=== PATIENT | female | born 1970 | race Caucasian/White ===

== ENCOUNTER 2017-01-09 19:04 | Inpatient (IN) | payer MEDICARE ==
--- NOTE | ~2017-01-09 | HP ---
History And Physical [id number] [place]. [address] NAME: YANICK EMNDEZ : 74 STATUS : ADM Mary PAT#: [id number] AGE: 46 ADM/REG DATE : 01/10/17 MR#: [id number] REPORT SERV DATE: 01/10/17 DICTATED BY: KARTHIK CHAMBERS DATE: 01/10/17 REPORT STATUS : Draft TRANSCRIBED BY: MODL DATE: 01/10/17 DATE OF ADMISSION: 01/10/2017 ADDENDUM 1. #4 was pulmonary hypertension, secondary to #3. 2. Hypoxemia. 3. Anxiety. 4. Chronic pain. Patient seeking Dilaudid which helped more in the past. 5. Patient accusing of diverting the pain medications and taking some of them though not in his presence. denying this and seems somewhat frustrated with the patient's chronic medical conditions and problems. 6. Bipolar affective disorder with depressive state, probably major depressive disorder associated with that. says she is said to be bipolar and has been seen by [facility] in the past. It may be that the suicidal threat is due to loss of control, concerning that someone is diverting her pain medications and limited resources to deal with this. PLAN: Observation. Restart medications. Observe blood pressure. Holding the medications that may lower blood pressure some. Case management for assistance for transfer to psychiatric facility because of suicidal threat. We will get Dr. Londono to help see her in the hospital for psychiatric problems. PHYSICAL EXAMINATION: GENERAL: The patient appears comfortable. She is feeding herself breakfast. Her affect is flat. Voice is monotone with a whining tone to it. DB/JUAN M Karthik Chambers M.D. / [id number] CC: Jesus Miranda M.D. James Zellner, M.D. Dannis Hood Jr., M.D. Denis Kennedy, M.D. Carlos Baleeiro, M.D.
--- NOTE | ~2017-01-09 | CN ---
Consultation Report [facility] [address] [place]. [address] NAME: YANICK MENDEZ : 74 STATUS : ADM IN PAT#: [id number] AGE: 46 ADM/REG DATE : 01/11/17 MR#: [id number] REPORT SERV DATE: 01/16/17 DICTATED BY: DAYNE KHAN DATE: 01/16/17 REPORT STATUS : Draft TRANSCRIBED BY: MODL DATE: 01/16/17 CONSULTATION DATE OF CONSULTATION: 01/16/2017 REASON: Chest pain. HISTORY OF PRESENT ILLNESS: Ms. Mendez is a 46-year-old female with a known coronary artery disease who underwent stenting in approximately 2012 at [facility]. That history is given by the patient. She is seen by my partner, Dr. Valentine in clinic. 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 She is here for suicidal ideations. From the initial history and physical, I cannot see that she actually complained of significant chest pain. However, during the course of her stay here, she has begun complaining of some left-sided chest pain that radiates into her left arm. She states it reminds her of prior pain before she was stented back in 2012. PAST MEDICAL HISTORY: 1. Coronary artery disease with PCI. 2. Chronic pain. 3. History of congestive heart failure. 4. GERD. SOCIAL HISTORY: Her is in the room. FAMILY HISTORY: There is coronary artery disease in the family. HOME MEDICATIONS: Please see the list in the chart as it is extensive. Relevant cardiac medications are aspirin, Bumex, pravastatin, spironolactone, and warfarin. ALLERGIES: THERE ARE MULTIPLE ALLERGIES LISTED IN THE CHART. THESE INCLUDE, NITROGLYCERIN AND LATEX. REVIEW OF SYSTEMS: A 10-system review was asked and is negative except for noted above in the history of present illness and for the following: She has chronic pain, chronic fatigue. No recent cold or flu symptoms. PHYSICAL EXAMINATION: VITAL SIGNS: Temperature 97.9, heart rate 73, blood pressure 99/57. GENERAL: Ms. Mendze is a well-developed female, in no acute distress. She is alert and oriented to person and place. HEENT: Exam was negative. She is not dehydrated. NECK: No JVD is seen in her neck. LUNGS: Lungs have a few rhonchi. No crackles. No wheezing. Consultation Report [id number] [place]. [address] NAME: YANICK MENDEZ : 74 STATUS : ADM IN PAT#: [id number] AGE: 46 ADM/REG DATE : 01/11/17 MR#: [id number] REPORT SERV DATE: 01/16/17 DICTATED BY: DAYNE KHAN DATE: 01/16/17 REPORT STATUS : Draft TRANSCRIBED BY: JUAN M DATE: 01/16/17 HEART: Tones are regular. There is a slight murmur. ABDOMEN: The abdominal exam is negative. There are good bowel sounds. There is a little bit of tenderness to palpation over the left abdomen, it seems minimal. It is worse when she takes a deep breath and I pressed on her. EXTREMITIES: Exam shows minimal pitting edema. NEUROLOGIC: She is intact with normal speech, and normal strength bilaterally in her arms and legs. LABORATORY DATA: White blood cell count 6, hematocrit 33, and platelet count 111. INR 2.9. Sodium 137, potassium 3.9, BUN 13, creatinine 0.6. Cardiac enzymes are negative. Electrocardiogram: This shows sinus rhythm at about 100 beats per minute. She has a normal axis. She has right bundle-branch block. Multiple repolarization changes are noted. This does not appear to be any big change from about 1 month ago. IMPRESSION: 1. Chest pain with some typical elements. 2. History of coronary artery disease with PCI. PLAN: I think the best approach is to pursue a nuclear medicine stress test with Ms. Mendez. It has been a couple of years since she had one. She states that these symptoms remind her of prior symptoms before she had a stent. She and her agree with this plan. If the nuclear medicine stress test is negative, then I think no further cardiac workup is required. Obviously if it is positive, we will proceed with probable cardiac catheterization by Dr. Valentine. KIMBERLY/JUAN M Dayne Khan M.D. / [id number] CC: MD Tiesha Queen M.D.
--- NOTE | ~2017-01-09 | IDS ---
Interim Discharge Summary [facility] [address] [place]. [address] NAME: YANICK MENDEZ : 74 STATUS : ADM IN PAT#: [id number] AGE: 46 ADM/REG DATE : 01/11/17 MR#: [id number] REPORT SERV DATE: 01/21/17 DICTATED BY: DATE: REPORT STATUS : Draft TRANSCRIBED BY: MODL DATE: 01/20/17 ADMISSION DATE: 01/11/2017 DISCHARGE DATE: INTERIM DISCHARGE DIAGNOSES: 1. Chest pain. 2. Anxiety. 3. Pulmonary hypertension. 4. Cor pulmonale. 5. Chronic pain. 6. Suicidal ideation. CONSULTING PHYSICIANS: Include Dr. Nic Londono, and Dr. Luis Valentine, with Cardiology. IMAGING: Includes a multiple portable chest x-rays, the last showing stable severe enlargement of the central pulmonary arteries compatible with pulmonary hypertension. Stable enlargement of the cardiac silhouette with evidence of previous median sternotomy and heart valve replacement. No acute cardiopulmonary abnormality was noted. The patient had a stress test that was intermediate risk which demonstrated anterior ischemia. For full H and P, please refer to Dr. Ruben Marsh's dictation on 01/10/2017. Please also refer to Dr. Nalini Hernandez's interim discharge summary on 01/13/[address] Dayne Galo's consultation dictation on 01/15/2017. HOSPITAL COURSE/PROBLEM LIST: 1. Chest pain. The patient developed chest pain on 01/16/2017. She has a history of coronary artery disease and is a patient of Dr. Valentine. She has a significant history of stenting in 2012 at [place]. 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 After she developed chest pain, troponins were trended which were all negative. Her EKG was unchanged from the previous but her chest pain did not subside so I consulted Dr. Valentine. As mentioned above, the patient underwent a stress test which showed some ischemia so therefore she will have a heart catheterization tomorrow on 01/21/[address] Valentine. If the heart catheterization is negative, we will discharge the patient home for further outpatient workup. However, if it is positive and she needs intervention due to her pulmonary hypertension, she will need to go to [place] for specialty care for that intervention, and we will need to transfer her. Her chest pain has not subsided since 01/16/2017. She has morphine IV ordered. She states that she cannot take nitroglycerin due to her pulmonary hypertension medications. Her chest pain varies in intensity but has not subsided since it started. 2. Anxiety. This was evaluated by Dr. Londono. He placed the patient on Xanax which I have continued. 3. Pulmonary hypertension. This has been stable during her hospital course. I have kept her on her selexipag as well as Revatio. 4. Chronic pain. I will continue the patient's home chronic pain medications MS Contin as well as immediate release morphine. 5. Suicidal ideation. This has resolved since admission. Again, Dr. Dwayne Londono was Interim Discharge Summary [address] [address] NAME: YANICK MENDEZ : 74 STATUS : ADM IN [facility]#: [id number] AGE: 46 ADM/REG DATE : 01/11/17 MR#: [id number] REPORT SERV DATE: 01/21/17 DICTATED BY: DATE: REPORT STATUS : Draft TRANSCRIBED BY: MODL DATE: 01/20/17 consulted who evaluated the patient. It was decided that, she told Dr. Londono that she said she was suicidal when she was not, she was angry with her for not giving her pain medications at home when she asked for them. He has cleared the patient to be discharged once medically stable. CLR/MODL Toby Wong NP / [id number] CC: MD Tiesha Queen M.D.
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
--- NOTE | ~2017-01-09 | IDS ---
Interim Discharge Summary [facility] [address] [place]. [address] NAME: YANICK MENDEZ : 74 STATUS : ADM IN PAT#: [id number] AGE: 46 ADM/REG DATE : 01/11/17 MR#: [id number] REPORT SERV DATE: 01/14/17 DICTATED BY: BRENDA CROWE DATE: 01/14/17 REPORT STATUS : Draft TRANSCRIBED BY: MODL DATE: 01/14/17 ADMISSION DATE: 01/11/2017 DISCHARGE DATE: DIAGNOSES: 1. Suicidal ideation. 2. Anxiety disorder. 3. History of Ebstein anomaly with cor pulmonale/pulmonary hypertension. 4. Chest pain. 5. Acute on chronic bronchitis. 6. Mild hypotension, resolved. 7. Chronic pain management. CONSULTANTS: Dr. Nic Londono, Psychiatry. HOSPITAL COURSE: Please see H and P dictated by Dr. Marsh. This is a 46-year-old female with a past medical history of Ebstein anomaly with a pulmonary hypertension, also history of bronchitis, and on chronic pain management as an outpatient. The patient had suicidal ideation/threat while at home and was brought to the emergency department and admitted to the Hospitalist Service with a Psychiatry consultation. The patient was initially placed on one-to-one suicide precautions. However, her suicide precautions were discontinued by psychiatrist, Dr. Nic Londono, after the patient denied any suicide plans. The patient states that she is on chronic pain management at home and her held some of her pain medicines and she became so frustrated and irritated about the situation and also upset with some problems with some of the children at the house and became very irritated and out of anger made comments concerning a suicide; however, the patient was very tearful and stated that she did not mean it and would not ever plan to hurt herself or kill herself. She was evaluated by Psychiatry, Dr. Nic Londono, who removed the suicide precautions. Her pain management was continued, and also he continued anxiety medication as well. However, the patient's hospital course was prolonged for some acute on chronic bronchitis, for which the patient was recently discharged from the hospital by Dr. Mabry. However, bronchodilators were continued as well as we will restart her doxycycline empirically, although no current signs of infection at this time. Also, the patient has some mild hypotension; however, at her baseline, blood pressure does range around systolic 95. However, she had some mild hypotension lower than that secondary to her diuretics and pain medications. Appropriate changes were made, and now blood pressure is back at her baseline. The plan was for the patient to be discharged with outpatient followup with [facility] counseling, which was recommended by Dr. Nic Londono, Psychiatry for the patient to follow up with him as an outpatient. According to the , the patient already has an appointment with this counseling center. However, today, the patient had a complaint of chest pain, right and left sided, worse with exertion. Therefore, serial troponins will be ordered as well as an EKG. Also, the patient and were educated that the patient is not allowed at this time to give herself any of her own pain medicines and medicines must be given by her for appropriate management and safety. Also, they should continue with home health. Apparently, a home health nurse is already following with the patient at home and recommend to continue to have a nursing teacher at home to monitor medications at Interim Discharge Summary [address] [address] NAME: YANICK MENDEZ : 74 STATUS : ADM IN [facility]#: [id number] AGE: 46 ADM/REG DATE : 01/11/17 MR#: [id number] REPORT SERV DATE: 01/14/17 DICTATED BY: BRENDA CROWE DATE: 01/14/17 REPORT STATUS : Draft TRANSCRIBED BY: JUAN M DATE: 01/14/17 discharge. The patient will be followed by Dr. Delacruz, who will attend to this patient on 01/15/2017 and ascertain when the patient is ready for discharge at that time. [facility]/JUAN M Brenda Crowe M.D. / [id number] CC: Jesus Carr M.D.
--- NOTE | ~2017-01-09 | OP ---
Record Of Operation [facility] [address] [place]. [address] NAME: YANICK MENDEZ : 74 STATUS : DIS IN PAT#: [id number] AGE: 46 ADM/REG DATE : 01/11/17 MR#: [id number] REPORT SERV DATE: 02/12/17 DICTATED BY: AGUSTIN VALENTINE JR. DATE: 01/23/17 REPORT STATUS : Draft TRANSCRIBED BY: MODL DATE: 01/23/17 DATE OF PROCEDURE: 01/21/2017 Cardiac catheterization followed by an interventional summary report. REFERRING PHYSICIAN: Ruben Camacho M.D. INDICATION FOR CARDIAC CATHETERIZATION: Abnormal nuclear stress, unstable angina class 4, chest pain, history of known epicardial coronary artery disease. IV CONSCIOUS SEDATION: 1 mg IV Versed and 50 mcg of intravenous fentanyl. Local anesthesia 30 mL of 1% Xylocaine to the right femoral region. COMPLICATIONS: None. ESTIMATED BLOOD LOSS: Approximately 5 mL. PROCEDURE: After informed consent was obtained, the patient was taken to the cardiac catheterization lab where she was sterilely draped and prepped. Then, a 6-Danish sheath was placed in the right femoral artery following subcutaneous and subfascial 1% Xylocaine administration. A modified Seldinger technique was utilized with flushing of the sheath according to protocol after the sheath was placed. Next, a Curt right catheter was advanced over a wire under fluoroscopy in the BURUNDIAN view for which angiography was performed in the BURUNDIAN and AP cranial views. This catheter was then exchanged for an XB LAD 3.5 with side holes which was advanced over a wire under fluoroscopy to the ostium of the left main coronary artery. Cineangiography was performed in the cranial BURUNDIAN, caudal AP, caudal ESCOBAR, ESCOBAR cranial, and AP cranial views. Prior to the cineangiography of the LAD system, a 6- Danish pigtail catheter had been advanced over wire and gently prolapsed across the aortic valve for which a hemodynamic tracings were obtained in the left ventricle as well as the aorta. A 30 mL ventriculogram was performed in the ESCOBAR view. No aortic stenosis was noted upon pullback across the aortic valve. After imaging of the right coronary artery and left coronary artery system and ventriculogram were performed, the diagnostic case was concluded and the interventional case began. HEMODYNAMICS: Aortic peak systolic pressure 95 mmHg. Aortic minimum diastolic pressure 50 mmHg mean. Aortic pressure 64 mmHg. Left ventricular peak systolic pressure 95 mmHg. Left ventricular end-diastolic pressure 13 mmHg. Aortic peak systolic pressure 95 mmHg. Minimum aortic diastolic pressure of 50 mmHg. Mean aortic pressure 64 mmHg. There was no gradient upon withdrawal of the catheter from left ventricle to the aorta. ANGIOGRAPHY: Right coronary artery 3 mm vessel which bifurcates into a distal large RPLS system, which branches supplying large majority of the inferolateral and posterior wall. Right posterior descending artery normal vessel supplying the diaphragmatic portion of the inferior wall. The proximal mid right coronary artery segments are both normal. Left main coronary artery moderate-sized vessel with 25% ostial stenosis at a prior stent. CINDY grade 3 flow was noted down this long vessel. This vessel bifurcates into an LAD and smaller Record Of Operation [place] [facility] [address] [facility] [place]. [address] NAME: YANICK MENDEZ : 74 STATUS : DIS IN PAT#: [id number] AGE: 46 ADM/REG DATE : 01/11/17 MR#: [id number] REPORT SERV DATE: 02/12/17 DICTATED BY: AGUSTIN VALENTINE JR. DATE: 01/23/17 REPORT STATUS : Draft TRANSCRIBED BY: JUAN M DATE: 01/23/17 circumflex. The circumflex is a 2 to 2.5 mm vessel which gives rise to a very small 1.5 mm obtuse marginal vessel which appears normal and a smaller distal circumflex which also appears normal. Left anterior descending coronary artery moderate-sized vessel, tortuous with a complex type C long stenosis with calcification. Eccentric of the proximal left anterior descending artery involving a portion of the first diagonal vessel. The second diagonal vessel is approximately 2 mm in diameter and approaches the crux of the left anterior descending coronary artery, then proceeds to the crux and to the subdiaphragmatic portion of the heart. CINDY grade 2 flow was noted past this lesion. VENTRICULOGRAM: Normal left ventricular systolic function with ejection fraction of approximately 55% with no regional wall motion abnormality and mild left ventricular hypertrophy. FRACTIONAL FLOW RESERVE: Fractional flow reserve was performed after initiation of weight- based protocol heparin according to weight. ACT approached 264 for which a flow wire was then advanced carefully across the ostial left main lesion after normalizing initial IFR measured 0.96. FFR with adenosine measured 0.88. The flow wire was then advanced across the proximal LAD lesion. IFR measured 0.94. FFR with adenosine then measured 0.76 for which the case became interventional. The patient tolerated the IFR procedure well. The fractional flow reserve wire was advanced via the XP LAD 3.5 with side holes. IMPRESSION: 1. A single vessel epicardial coronary artery disease of significance with abnormal FFR as above, but patent nonsignificant disease of the ostial LAD. 2. Normal left ventricular systolic function with no mitral insufficiency. Normal LVEDP and no wall motion abnormality. PLANS AND RECOMMENDATIONS: Percutaneous coronary intervention of the proximal LAD. Now the interventional report. There is a type C 75% stenosis of the proximal LAD which partially involves the first diagonal coronary artery. This is a complex lesion eccentric and calcified. IFR is noted to be 0.76. PROCEDURE: Following engagement of the XP LAD 3.5 to the ostium of the left main coronary artery. Following cineangiography of the left main system and following FFR and IFR. The flow wire remained across the lesion and an Emerge Monorail 3.0 x 12 mm balloon catheter was then advanced across the lesion and inflated a total of four inflations for 25 seconds each up to 8 atmospheres maximum with 50% residual stenosis. A cutting balloon attempted to cross the lesions before initiation of the Emerge Monorail but was unsuccessful. Following balloon angioplasty, a PROMUS Premier 3.5 x 28 mm stent was advanced and placed across the proximal LAD lesion and deployed at 11 atmospheres for 20 seconds and then post dilated at 11 atmospheres for 20 seconds. This was then withdrawn and a [place] Nonabox Emerge passed across the proximal portion of the stent to post dilate a more dilated segment. This was a 3.5 x 12 mm balloon which was inflated to 14 atmospheres for a total of 15 seconds and then 12 atmospheres for a total of 20 seconds. It was then apparent that there was a small lip at the more proximal end of the 28 mm stent which would be unsuitable for conclusion of the procedure as part of the lesion would be uncovered. Therefore, a PROMUS Premier 3.5 x 8 mm stent was deployed at 12 atmospheres for 20 seconds and post dilated to 14 atmospheres for Record Of Operation [facility] [address] [place]. [address] NAME: VANESSAYANICKN : 74 STATUS : DIS IN [facility]#: [id number] AGE: 46 ADM/REG DATE : 01/11/17 MR#: [id number] REPORT SERV DATE: 02/12/17 DICTATED BY: AGUSTIN VALENTINE JR. DATE: 01/23/17 REPORT STATUS : Draft TRANSCRIBED BY: JUAN M DATE: 01/23/17 15 seconds with 0% residual stenosis. The patient tolerated the procedure well with CINDY grade 3 flow following the procedure. IMPRESSION: Successful PTC drug-eluting stent of the proximal LAD with CINDY grade 3 flow. PLANS AND RECOMMENDATIONS: 1. Continue low-dose aspirin. 2. Resume warfarin and then ensuing 36 hours load and continue clopidogrel 600 mg and then 75 mg daily for one month of triple antiplatelet therapy and then ensuing dual antiplatelet therapy with warfarin and Plavix only. 3. Cardiac risk factor reduction. 4. Further recommendations to follow. /JUAN M Agustin Valentine Jr., M.D. / [id number] CC: Dilma Coker M.D.
--- NOTE | ~2017-01-09 | DS ---
Discharge Summary [place] [address] [place]. [address] NAME: YANICK MENDEZ : 74 STATUS : ADM IN [facility]#: [id number] AGE: 46 ADM/REG DATE : 01/11/17 MR#: [id number] REPORT SERV DATE: 01/27/17 DICTATED BY: TOBY GOMEZ DATE: 01/27/17 REPORT STATUS : Draft TRANSCRIBED BY: MODL DATE: 01/27/17 ADMISSION DATE: 01/11/2017 DISCHARGE DATE: DISCHARGE DIAGNOSIS: 1. Chest pain. 2. Coronary artery disease in the setting of a history of CABG, and history of an Ebstein repair, status post heart catheterization that was performed on 01/21/2017, where two drug-eluting stents were placed. 3. Pulmonary hypertension, cor pulmonale on chronic home O2 of 3 L nasal cannula. 4. Chronic Coumadin therapy with history of pulmonary embolus. Most recent INR 1.9. 5. Anxiety. 6. Chronic pain syndrome. 7. Suicidal ideation. DISCHARGE MEDICATIONS: Aspirin 81 mg daily, Zebeta 10 mg daily, Bumex 0.5 mg p.o. daily, Plavix 75 mg daily, Colace 200 mg at bedtime, magnesium oxide 400 mg daily, MS Contin 30 mg sustained release twice a day, morphine immediate release 15 mg twice a day p.r.n. for breakthrough pain, multivitamin tablet daily, Prilosec 40 mg daily, MiraLAX one packet twice a day, Pravachol 20 mg at bedtime, Seroquel 200 mg at bedtime, spironolactone 50 mg twice a day, Tadalafil 40 mg daily, Carafate 1 g twice a day, Effexor XR 150 mg daily, warfarin 5 mg daily, and Symbicort 160/4.5 one puff inhaled twice a day, Diamox 125 mg daily, potassium chloride 40 mEq daily, Atrovent inhalers two puffs three times a day p.r.n. for shortness of breath, Uptravi 1200 mg twice a day, Opsumit 10 mg daily, and prescription written for Ativan 0.5 mg at hour of sleep p.r.n. for insomnia #15. HISTORY OF PRESENT ILLNESS: This is a 46-year-old, white female, who originally presented with suicidal threat and increasing pain in the setting of chronic pain syndrome. Please see initial H and P of Dr. Ruben Marsh. The patient was admitted to the Hospitalist Service for further evaluation and treatment. CONSULTANTS DURING THIS ADMISSION: 1. Cardiology, Dr. Khan. 2. Dr. Valentine. 3. Psychiatry, Dr. Dwayne Londono. Please also see the interim discharge summaries of Dr. Nalini Hernandez and the interim summary of Toby Wong nurse practitioner, as this discharge summary will cover the dates of 01/22/2017 to 01/27/2017. HOSPITAL COURSE: I began seeing the patient on 01/22/2017. She was status post heart catheterization that had been performed on 01/21/2017, where 2 drug-eluting stents were placed, and she was recovering well from this in the cardiac short-stay unit. Her heparin drip had been started and Coumadin therapy was resumed given her history of pulmonary embolus. She continued to do well. She had completed a ten-day course of doxycycline and this was discontinued. Her INR was followed closely each day, with resumption of her Discharge Summary [address] [address] NAME: YANICK MENDEZ : 74 STATUS : ADM IN [facility]#: [id number] AGE: 46 ADM/REG DATE : 01/11/17 MR#: [id number] REPORT SERV DATE: 01/27/17 DICTATED BY: TOBY GOMEZ DATE: 01/27/17 REPORT STATUS : Draft TRANSCRIBED BY: MODRamiro DATE: 01/27/17 Coumadin, and it began to climb finally on the morning of 01/25/2017 up to 1.5, then to 1.7, and today on 01/27/2017 of 1.9. She will continue on her Coumadin as described in the home medications above and have instructed her to get a recheck INR done in mid week Saturday or Saturday through her [facility]. She will follow up with Dr. Valentine of Cardiology in four weeks and the patient is in agreement with this plan going forward and so she will be discharged home with the above medicines and followup plan. Questions were answered at bedside. Heparin drip has been discontinued. Please note, greater than 30 minutes was spent on this discharge for medication teaching, followup planning, and further disposition. [facility]/MODL Toby Gomez NP / [id number] CC: MD Tiesha Cunningham II, M.D.
--- NOTE | ~2017-01-09 | CN ---
Consultation Report [facility] [address] [place]. [address] NAME: YANICK MENDEZ : 74 STATUS : ADM Mary PAT#: [id number] AGE: 46 ADM/REG DATE : 01/10/17 MR#: [id number] REPORT SERV DATE: 01/10/17 DICTATED BY: NIC RHODES DATE: 01/10/17 REPORT STATUS : Draft TRANSCRIBED BY: JUAN M DATE: 01/10/17 PSYCHIATRIC CONSULTATION DATE OF CONSULTATION: 01/10/2017 I reviewed the patient's current and old medical records. I discussed her status with the ER physician. I discussed her history with her , who was at the bedside. HISTORY OF PRESENT ILLNESS: She was admitted with chest pain. I was asked to address suicidal ideation. PAST PSYCHIATRIC HISTORY: She has a history for over 10 years of easily provoked anger and anxiety. Throughout this time, she has had considerable mood instability. She has had bouts of severe insomnia. She has not had any euphoric avery, but does appear to have experienced dysphoric manic episodes. She has had severely depressive spells. Over recent years, she has made suicidal threat, but no attempts. However, over the past few days, she has again made a suicide threat and she had a plan for shooting herself. SOCIAL HISTORY: She appears to have a very supportive , who is currently at the bedside. Her son is also at the bedside. She has three children, ages from there made teens to mid 20s. FAMILY HISTORY: A brother suffers from bouts of severe insomnia and mood issues. Her father had significant substance abuse and mood issues. MENTAL STATUS: She appeared to be somewhat drowsy at this time. Her speech was slow and slurred. Her mood was dysphoric. Her affect was quite labile with tearful episodes. She expressed ambivalence concerning a suicide. Her thinking was logical. She had no delusions. She had no hallucinations. She was oriented to time, place, and person. DIAGNOSIS: Bipolar disorder, not otherwise specified. RECOMMENDATIONS: We should continue suicide precautions. We should continue her home Seroquel and Effexor. I will follow during this admission. I feel her heavy opioid regimen is a contributor to her mood instability. [facility]/JUAN M Nic Rhodes M.D. / [id number] Consultation Report [place] [address] [address] NAME: YANICK MENDEZ : 74 STATUS : ADM Mary PAT#: [id number] AGE: 46 ADM/REG DATE : 01/10/17 MR#: [id number] REPORT SERV DATE: 01/10/17 DICTATED BY: NIC RHODES DATE: 01/10/17 REPORT STATUS : Draft TRANSCRIBED BY: JUAN M DATE: 01/10/17 CC: Ruben Marsh M.D.
[~2017-01-09 19:04] MED LIST: ACET500CAP PO; ACETAZOLAMID125 MG PO; ADCIRCA20 MG PO; ADVAIR250 INH; ALTA2.5 PO; AMB10 PO; APRES10B PO; ASAB PO; ASAEC PO; ATV.5 PO; ATV1 PO; BACDS PO; BENTYL20 PO; BUM1 PO; BUM2 PO; BYSTOLIC10 MG PO; BYSTOLIC2.5 MG PO; BYSTOLIC5 MG PO; C25 PO; C5; C5 PO; CANASA1SUP PR; CARD30 PO; CARD60 PO; CARDCD240 PO; CEFT5 PO; CENTRUM TAB1 TAB PO; COLCH6 PO; COUMADIN7.5 MG PO; D.O.S.100 MG PO; DEMA20 PO; DEPAKOT250 PO; DIAM250B PO; DIL2TAB PO; DIL4TAB PO; DIPHENCR TOP; DOLOPHINE10 MG PO; DSS PO; DULERA 200 MCG/13 GM INH; DURA100 TOP; DURA50 TOP; DURA75 TOP; EFFEX75 PO; EFFEXOR XR150 MG PO; EFFEXXR75 PO; GLUCPH PO; HALF81 PO; HYDROCORT12 TOP; JANTOVEN5 MG PO; KCL20UDL PO; KCL40UDL PO; KLONO1 PO; KLOR-CON M2020 MEQ PO; KLOR-CON20 MEQ PO; L20 PO; L80 PO; LACT30UDL PO; LAN125 PO; LEVAQUIN750 MG PO; LEVOTHYROXIN50 MCG PO; LIDOCAINE GEL TOP; LIPITOR20 PO; MAGOX4 PO; MEDROLPAK4 PO; METHATAB10 PO; MIRALAX POWDER1 PKT PO; MIRALAXPKT OR; MIRALAXPKT PO; MONODOX100 MG PO; MSCONT15 PO; MSIMMR15 PO; MUCINEX600 MG PO; MULTIPLE VIT PO; MULTIVIT/MIN PO; MULTIVITAMI1 PO; MYCELEX TROCHE10 MG PO; NAC PO; NEUR100 PO; NEXIUM40 PO; NORCO1 TA1 PO; NORCO1 TAB PO; NOVOLOG SC; NOVOPEN SC; NYS500UDL PO; NYSTATPOW TOP; NYSTOP100000 MG TOP; OPSUMIT10 PO; P5 PO; PERCOCET1 TA4 PO; PLAVIX PO; PR25 PO; PRAV10 PO; PRAVAC PO; PRILOSEC40 MG PO; PROAIR HFA INH; PROTONIX PO; PROTONIX20 MG PO; PROVENTSOL INH; PROVHFA INH; RAN500 PO; RANEXA1000 MG PO; REMERON30 MG PO; ROBITUSS23 PO; SENTAB PO; SEROQUEL1C PO; SEROQUEL200 MG PO; SPIRO25 PO; SPIRO50 PO; STERAPDS12; STERAPRED5 MG; STEROID CREAM TOP; STOOL SOFTEN100 MG PO; STOOL SOFTENER; STOOL SOFTENER PO; SUCR PO; SYMBICORT 160/41 INH INH; SYN.05 PO; TESS PO; TESSALON200 MG PO; THERGRANM PO; TOPXL25 PO; TRACLEER PO; TRAZ50 PO; TYVASO0.6 MG/ML; TYVASO0.6 MG/ML INH; UPTRAVI PO; V2 PO; VALIUM10 MG PO; VENTOLIN HFA INH; XANAX2 MG PO; XOPENEX HFA INH; Z5 PO; ZAROX2.5B PO; ZBETA10 PO; ZOCOR5 MG PO; ZOFRAN4 PO; [UNRECOGNIZED DRUG - OTHER] OT; [UNRECOGNIZED DRUG - OTHER] PO
[2017-01-09 20:22] LABS: BASOPHILS 0.4 %; BASOPHILS ABSOLUTE 0.04 10/3/uL (0.0-0.16); EOSINOPHILS 0.8 %; EOSINOPHILS ABSOLUTE 0.09 10/3/uL (0.0-0.53); HEMOGLOBIN 14.5 g/dL (12.0-16.0); IMMATURE GRANULOCYTES 0.2 %; IMMATURE GRANULOCYTES ABSOLUTE 0.02 10/3/uL (0.0-0.11); LYMPHOCYTES 22.9 %; LYMPHOCYTES ABSOLUTE 2.59 10/3/uL (0.67-4.30); MEAN CORPUS HGB CONC 34.8 g/dL (32.0-36.0); MEAN CORPUSCULAR HEMOGLOB 28.9 pg (26.0-34.0); MEAN CORPUSCULAR VOLUME 83.1 fL (80-100); MEAN PLATELET VOLUME 11.9 fL (9.2-13.0); MONOCYTES 6.5 %; MONOCYTES ABSOLUTE 0.74 10/3/uL (0.21-1.20); NEUTROPHILS 69.2 %; NEUTROPHILS ABSOLUTE 7.85 10/3/uL (2.02-8.40); RBC DISTRIBUTION WIDTH 14.6 % (12.0-16.0); RED CELL COUNT 5.02 10/6/uL (4.0-5.6); WHITE BLOOD CELLS 11.3 10/3/uL (4.5-10.5)
[2017-01-09 20:28] LABS: HEMATOCRIT 41.7 % (36.0-48.0); MANUAL DIFF NO %; PLATELET COUNT 213 10/3/uL (150-400)
[2017-01-09 20:30] LABS: INTERNATIONAL NORMAL RATI 1.5 UNITS (-); PARTIAL THROMBO TIME 32.3 SEC (22.5-37.2)
[2017-01-09 20:38] LABS: CALCIUM, SERUM 9.6 MG/DL (8.5-10.4); CHEST PAIN PROFILE TAT 0 Hrs 22 Mins; CHLORIDE, SERUM 110 MMOL/L (96-112); CO2 (CARBON DIOXIDE) 26 MMOL/L (24-34); CREATININE 0.86 MG/DL (0.55-1.02); GFR AFRICAN AMERICAN 95 ML/MIN (>=60); GFR NON AFRICAN AMERICAN 82 ML/MIN (>=60); POTASSIUM, SERUM 4.3 MMOL/L (3.5-5.3); SODIUM, SERUM 143 MMOL/L (135-148); TROPONIN I <0.02 NG/ML (<0.05)
[2017-01-09 20:39] LABS: BUN (BLOOD UREA NITROGEN) 11 MG/DL (6-23); GLUCOSE, SERUM 106 MG/DL (60-99)
[2017-01-09 21:46] LABS: ASCORBIC ACID (UR NOT ORDER) NEG (NEG); BILIRUBIN, URINE NEGATIVE (NEG); ER URINALYSIS TAT 0 Hrs 10 Mins; KETONE, URINE NEGATIVE (NEG); LEUKOCYTE ESTERASE(NOT OR NEG (NEG); NITRITE (URINE) NEG (NEG); WBC (NOT ORDERED) (RFLEX) 1 (0-5)
[2017-01-09 22:17] LABS: AMPHETAMINES (NOT ORD) NEG (NEG); BARBITURATES (NOT ORDERED NEG (NEG); BENZODIAZEPINES (NOT ORD) NEG (NEG); CANNABINOIDS (THC) NEG (NEG); COCAINE (NOT ORDERED) NEG (NEG); OPIATES POS (NEG); PHENCYCLIDINE(PCP) NEG (NEG); TRICYCLICS NEG (NEG)
[2017-01-09 22:29] LABS: ACETAMINOPHEN LEVEL (TYLENOL) < 2.0 MCG/ML (10.0-20.0); ALCOHOL < 10 MG/DL (0); SALICYLATE 3.4 MG/DL (-)
[2017-01-09] MEDS ORDERED: BUM1 PO (22:43)
[2017-01-09] MEDS ORDERED: SYMBICORT 160/41 INH INH (22:43)
[2017-01-09] MEDS ORDERED: DIAM250B PO (22:43)
[2017-01-09] MEDS ORDERED: ASAB PO (22:43)
[2017-01-09] MEDS ORDERED: ZBETA10 PO (22:43)
[2017-01-09] MEDS ORDERED: DSS PO (22:43)
[2017-01-09] MEDS ORDERED: SPIRO50 PO (22:44)
[2017-01-09] MEDS ORDERED: MIRALAX POWDER1 PKT PO (22:44)
[2017-01-09] MEDS ORDERED: SEROQUEL200 MG PO (22:44)
[2017-01-09] MEDS ORDERED: SUCR PO (22:44)
[2017-01-09] MEDS ORDERED: PRAVAC PO (22:44)
[2017-01-09] MEDS ORDERED: KLOR-CON M2020 MEQ PO (22:44)
[2017-01-09] MEDS ORDERED: ADCIRCA20 MG PO (22:45)
[2017-01-09] MEDS ORDERED: IPRA17AE INH (22:46)
[2017-01-09] MEDS ORDERED: EFFEXOR XR150 MG PO (22:46)
[2017-01-09] MEDS ORDERED: C5 PO (22:47)
[2017-01-09] MEDS ORDERED: OPSUMIT10 PO (22:47)
[2017-01-09] MEDS ORDERED: MAGOX4 PO (22:47)
[2017-01-09] MEDS ORDERED: MSCONTIN PO (22:47)
[2017-01-09] MEDS ORDERED: PRILOSEC40 MG PO (22:48)
[2017-01-09] MEDS ORDERED: MSIMMR15 PO (22:48)
[2017-01-09] MEDS ORDERED: MULTIVIT/MIN PO (22:48)
[2017-01-09] MEDS ORDERED: UPTRAVI PO (22:49)
[2017-01-10 06:34] LABS: LACTATE 0.6 MMOL/L (0.3-2.4)
[2017-01-10 06:38] LABS: ASCORBIC ACID (UR NOT ORDER) NEG (NEG); BILIRUBIN, URINE NEGATIVE (NEG); ER URINALYSIS TAT 0 Hrs 00 Mins; KETONE, URINE NEGATIVE (NEG); LEUKOCYTE ESTERASE(NOT OR NEG (NEG); NITRITE (URINE) NEG (NEG); WBC (NOT ORDERED) (RFLEX) 1 (0-5)
[2017-01-10 07:27] LABS: TROPONIN I 0.02 NG/ML (<0.05)
[2017-01-10 07:31] LABS: PROCALCITONIN <0.05 ng/mL (<0.5)
[2017-01-11 05:15] LABS: INTERNATIONAL NORMAL RATI 1.9 UNITS (-)
[2017-01-11 05:17] LABS: PROTIME (NOT ORD) 21.4 SEC (12.0-14.5)
[2017-01-12 06:40] LABS: INTERNATIONAL NORMAL RATI 2.1 UNITS (-); PROTIME (NOT ORD) 23.6 SEC (12.0-14.5)
[2017-01-12 06:47] LABS: BUN (BLOOD UREA NITROGEN) 9 MG/DL (6-23); CHLORIDE, SERUM 104 MMOL/L (96-112); CO2 (CARBON DIOXIDE) 30 MMOL/L (24-34); CREATININE 0.66 MG/DL (0.55-1.02); GFR AFRICAN AMERICAN 125 ML/MIN (>=60); GFR NON AFRICAN AMERICAN 107 ML/MIN (>=60); GLUCOSE, SERUM 125 MG/DL (60-99); POTASSIUM, SERUM 3.8 MMOL/L (3.5-5.3); SODIUM, SERUM 141 MMOL/L (135-148)
[2017-01-12 06:52] LABS: CALCIUM, SERUM 8.3 MG/DL (8.5-10.4)
[2017-01-13 09:54] LABS: INTERNATIONAL NORMAL RATI 2.9 UNITS (-)
[2017-01-13 09:58] LABS: PROTIME (NOT ORD) 30.4 SEC (12.0-14.5)
[2017-01-13 18:28] LABS: CPK 38 U/L (0-200); TROPONIN I <0.02 NG/ML (<0.05)
[2017-01-13 18:31] LABS: CK-MB 0.6 NG/ML
[2017-01-14 05:14] LABS: PROTIME (NOT ORD) 30.9 SEC (12.0-14.5)
[2017-01-14 11:11] LABS: CPK (IF ELEVATED MB BANDS) 26 U/L (0-200); TROPONIN I <0.02 NG/ML (<0.05)
[2017-01-14 16:09] LABS: CPK (IF ELEVATED MB BANDS) 25 U/L (0-200); TROPONIN I <0.02 NG/ML (<0.05)
[2017-01-14 22:22] LABS: CPK (IF ELEVATED MB BANDS) 24 U/L (0-200); TROPONIN I <0.02 NG/ML (<0.05)
[2017-01-15 04:57] LABS: INTERNATIONAL NORMAL RATI 3.1 UNITS (-); PROTIME (NOT ORD) 31.4 SEC (12.0-14.5)
[2017-01-16 09:21] LABS: BASOPHILS 0 %; EOSINOPHILS 0.7 %; EOSINOPHILS ABSOLUTE 0.04 10/3/uL (0.0-0.53); IMMATURE GRANULOCYTES 0.5 %; IMMATURE GRANULOCYTES ABSOLUTE 0.03 10/3/uL (0.0-0.11); LYMPHOCYTES 29.4 %; LYMPHOCYTES ABSOLUTE 1.67 10/3/uL (0.67-4.30); MEAN CORPUSCULAR HEMOGLOB 27.6 pg (26.0-34.0); MEAN PLATELET VOLUME 11.9 fL (9.2-13.0); MONOCYTES 7.2 %; MONOCYTES ABSOLUTE 0.41 10/3/uL (0.21-1.20); NEUTROPHILS 62.2 %; NEUTROPHILS ABSOLUTE 3.53 10/3/uL (2.02-8.40); RBC DISTRIBUTION WIDTH 15.8 % (12.0-16.0)
[2017-01-16 09:22] LABS: HEMATOCRIT 33.3 % (36.0-48.0); HEMOGLOBIN 10.4 g/dL (12.0-16.0); MEAN CORPUS HGB CONC 31.2 g/dL (32.0-36.0); MEAN CORPUSCULAR VOLUME 88.3 fL (80-100); PLATELET COUNT 111 10/3/uL (150-400); RED CELL COUNT 3.77 10/6/uL (4.0-5.6); WHITE BLOOD CELLS 5.7 10/3/uL (4.5-10.5)
[2017-01-16 09:23] LABS: MANUAL DIFF NO %
[2017-01-16 09:27] LABS: INTERNATIONAL NORMAL RATI 2.9 UNITS (-); PROTIME (NOT ORD) 29.9 SEC (12.0-14.5)
[2017-01-16 09:34] LABS: BUN (BLOOD UREA NITROGEN) 13 MG/DL (6-23); CALCIUM, SERUM 8.6 MG/DL (8.5-10.4); CHLORIDE, SERUM 101 MMOL/L (96-112); CO2 (CARBON DIOXIDE) 26 MMOL/L (24-34); CREATININE 0.61 MG/DL (0.55-1.02); GFR AFRICAN AMERICAN 128 ML/MIN (>=60); GFR NON AFRICAN AMERICAN 110 ML/MIN (>=60); GLUCOSE, SERUM 201 MG/DL (60-99); POTASSIUM, SERUM 3.9 MMOL/L (3.5-5.3); SODIUM, SERUM 137 MMOL/L (135-148)
[2017-01-17 13:58] LABS: PROTIME (NOT ORD) 22.9 SEC (12.0-14.5)
[2017-01-18 07:25] LABS: INTERNATIONAL NORMAL RATI 2.1 UNITS (-); PROTIME (NOT ORD) 23.3 SEC (12.0-14.5)
[2017-01-19 05:12] LABS: BASOPHILS 0.2 %; BASOPHILS ABSOLUTE 0.01 10/3/uL (0.0-0.16); EOSINOPHILS 4.9 %; EOSINOPHILS ABSOLUTE 0.29 10/3/uL (0.0-0.53); HEMATOCRIT 34.8 % (36.0-48.0); HEMOGLOBIN 11.1 g/dL (12.0-16.0); IMMATURE GRANULOCYTES 0.5 %; IMMATURE GRANULOCYTES ABSOLUTE 0.03 10/3/uL (0.0-0.11); LYMPHOCYTES 25.6 %; LYMPHOCYTES ABSOLUTE 1.51 10/3/uL (0.67-4.30); MANUAL DIFF NO %; MEAN CORPUS HGB CONC 31.9 g/dL (32.0-36.0); MEAN CORPUSCULAR HEMOGLOB 28.6 pg (26.0-34.0); MEAN CORPUSCULAR VOLUME 89.7 fL (80-100); MEAN PLATELET VOLUME 11.2 fL (9.2-13.0); MONOCYTES 6.1 %; MONOCYTES ABSOLUTE 0.36 10/3/uL (0.21-1.20); NEUTROPHILS 62.7 %; PLATELET COUNT 115 10/3/uL (150-400); RBC DISTRIBUTION WIDTH 15.7 % (12.0-16.0); RED CELL COUNT 3.88 10/6/uL (4.0-5.6); WHITE BLOOD CELLS 5.9 10/3/uL (4.5-10.5)
[2017-01-19 05:14] LABS: BUN (BLOOD UREA NITROGEN) 13 MG/DL (6-23); CALCIUM, SERUM 8.4 MG/DL (8.5-10.4); CHLORIDE, SERUM 102 MMOL/L (96-112); CREATININE 0.89 MG/DL (0.55-1.02); GFR AFRICAN AMERICAN 91 ML/MIN (>=60); GFR NON AFRICAN AMERICAN 79 ML/MIN (>=60); POTASSIUM, SERUM 4.4 MMOL/L (3.5-5.3); SODIUM, SERUM 140 MMOL/L (135-148)
[2017-01-19 05:15] LABS: CO2 (CARBON DIOXIDE) 33 MMOL/L (24-34)
[2017-01-19 05:16] LABS: GLUCOSE, SERUM 116 MG/DL (60-99)
[2017-01-19 05:17] LABS: INTERNATIONAL NORMAL RATI 1.9 UNITS (-); PROTIME (NOT ORD) 21.9 SEC (12.0-14.5)
[2017-01-20 05:42] LABS: BASOPHILS 0.4 %; BASOPHILS ABSOLUTE 0.02 10/3/uL (0.0-0.16); EOSINOPHILS 5.2 %; EOSINOPHILS ABSOLUTE 0.29 10/3/uL (0.0-0.53); IMMATURE GRANULOCYTES 0.2 %; IMMATURE GRANULOCYTES ABSOLUTE 0.01 10/3/uL (0.0-0.11); LYMPHOCYTES 31.6 %; LYMPHOCYTES ABSOLUTE 1.75 10/3/uL (0.67-4.30); MEAN CORPUS HGB CONC 31.4 g/dL (32.0-36.0); MEAN CORPUSCULAR HEMOGLOB 27.8 pg (26.0-34.0); MEAN CORPUSCULAR VOLUME 88.6 fL (80-100); MEAN PLATELET VOLUME 10.7 fL (9.2-13.0); MONOCYTES 3.8 %; MONOCYTES ABSOLUTE 0.21 10/3/uL (0.21-1.20); NEUTROPHILS 58.8 %; NEUTROPHILS ABSOLUTE 3.26 10/3/uL (2.02-8.40); PLATELET COUNT 113 10/3/uL (150-400); RBC DISTRIBUTION WIDTH 15.6 % (12.0-16.0); RED CELL COUNT 3.95 10/6/uL (4.0-5.6); WHITE BLOOD CELLS 5.5 10/3/uL (4.5-10.5)
[2017-01-20 05:43] LABS: MANUAL DIFF NO %
[2017-01-20 05:52] LABS: INTERNATIONAL NORMAL RATI 1.5 UNITS (-); PROTIME (NOT ORD) 17.5 SEC (12.0-14.5)
[2017-01-20 05:56] LABS: BUN (BLOOD UREA NITROGEN) 14 MG/DL (6-23); CALCIUM, SERUM 8.4 MG/DL (8.5-10.4); CHLORIDE, SERUM 100 MMOL/L (96-112); CO2 (CARBON DIOXIDE) 33 MMOL/L (24-34); CREATININE 0.78 MG/DL (0.55-1.02); GFR AFRICAN AMERICAN 107 ML/MIN (>=60); GFR NON AFRICAN AMERICAN 92 ML/MIN (>=60); GLUCOSE, SERUM 134 MG/DL (60-99); POTASSIUM, SERUM 4.2 MMOL/L (3.5-5.3); SODIUM, SERUM 139 MMOL/L (135-148)
[2017-01-21 05:36] LABS: BASOPHILS 0 %; EOSINOPHILS 3.9 %; EOSINOPHILS ABSOLUTE 0.21 10/3/uL (0.0-0.53); HEMATOCRIT 33.9 % (36.0-48.0); HEMOGLOBIN 10.8 g/dL (12.0-16.0); IMMATURE GRANULOCYTES 0.2 %; IMMATURE GRANULOCYTES ABSOLUTE 0.01 10/3/uL (0.0-0.11); LYMPHOCYTES 23.4 %; LYMPHOCYTES ABSOLUTE 1.26 10/3/uL (0.67-4.30); MEAN CORPUS HGB CONC 31.9 g/dL (32.0-36.0); MEAN CORPUSCULAR HEMOGLOB 28.1 pg (26.0-34.0); MEAN CORPUSCULAR VOLUME 88.3 fL (80-100); MEAN PLATELET VOLUME 10.9 fL (9.2-13.0); MONOCYTES 6.3 %; MONOCYTES ABSOLUTE 0.34 10/3/uL (0.21-1.20); NEUTROPHILS 66.2 %; NEUTROPHILS ABSOLUTE 3.57 10/3/uL (2.02-8.40); PLATELET COUNT 107 10/3/uL (150-400); RBC DISTRIBUTION WIDTH 15.8 % (12.0-16.0); RED CELL COUNT 3.84 10/6/uL (4.0-5.6); WHITE BLOOD CELLS 5.4 10/3/uL (4.5-10.5)
[2017-01-21 05:37] LABS: MANUAL DIFF NO %
[2017-01-21 05:48] LABS: BUN (BLOOD UREA NITROGEN) 16 MG/DL (6-23); CALCIUM, SERUM 8.4 MG/DL (8.5-10.4); CHLORIDE, SERUM 101 MMOL/L (96-112); CHOLESTEROL 132 MG/DL (< 200); CO2 (CARBON DIOXIDE) 33 MMOL/L (24-34); CPK 19 U/L (0-200); CREATININE 0.94 MG/DL (0.55-1.02); GFR AFRICAN AMERICAN 86 ML/MIN (>=60); GFR NON AFRICAN AMERICAN 74 ML/MIN (>=60); GLUCOSE, SERUM 139 MG/DL (60-99); POTASSIUM, SERUM 4.4 MMOL/L (3.5-5.3); SODIUM, SERUM 140 MMOL/L (135-148); TRIGLYCERIDE 119 MG/DL (< 150); TROPONIN I <0.02 NG/ML (<0.05)
[2017-01-21 05:50] LABS: CHOL/HDL RATIO(NOT ORDER) 2.3 (0-5); CK-MB 0.5 NG/ML; HDL CHOLESTEROL 58 MG/DL (> 49); LDL CHOLESTEROL 51 MG/DL (< 130); NON-HDL CHOLESTEROL 74 MG/DL (< 160)
[2017-01-21 06:00] LABS: INTERNATIONAL NORMAL RATI 1.3 UNITS (-); PROTIME (NOT ORD) 15.7 SEC (12.0-14.5)
[2017-01-22 05:00] LABS: BASOPHILS 0.3 %; BASOPHILS ABSOLUTE 0.01 10/3/uL (0.0-0.16); EOSINOPHILS ABSOLUTE 0.19 10/3/uL (0.0-0.53); HEMOGLOBIN 10.7 g/dL (12.0-16.0); IMMATURE GRANULOCYTES 0.3 %; IMMATURE GRANULOCYTES ABSOLUTE 0.01 10/3/uL (0.0-0.11); LYMPHOCYTES 22.8 %; LYMPHOCYTES ABSOLUTE 0.86 10/3/uL (0.67-4.30); MANUAL DIFF NO %; MEAN CORPUS HGB CONC 31.5 g/dL (32.0-36.0); MEAN CORPUSCULAR HEMOGLOB 28.6 pg (26.0-34.0); MEAN CORPUSCULAR VOLUME 90.9 fL (80-100); MEAN PLATELET VOLUME 10.3 fL (9.2-13.0); NEUTROPHILS 63.6 %; PLATELET COUNT 90 10/3/uL (150-400); RBC DISTRIBUTION WIDTH 15.6 % (12.0-16.0); RED CELL COUNT 3.74 10/6/uL (4.0-5.6); WHITE BLOOD CELLS 3.8 10/3/uL (4.5-10.5)
[2017-01-22 05:03] LABS: INTERNATIONAL NORMAL RATI 1.2 UNITS (-); PROTIME (NOT ORD) 15.4 SEC (12.0-14.5)
[2017-01-22 05:13] LABS: CALCIUM, SERUM 8.6 MG/DL (8.5-10.4); CHLORIDE, SERUM 102 MMOL/L (96-112); CO2 (CARBON DIOXIDE) 31 MMOL/L (24-34); CREATININE 0.77 MG/DL (0.55-1.02); GFR AFRICAN AMERICAN 109 ML/MIN (>=60); GFR NON AFRICAN AMERICAN 94 ML/MIN (>=60); GLUCOSE, SERUM 152 MG/DL (60-99); POTASSIUM, SERUM 4.1 MMOL/L (3.5-5.3); SODIUM, SERUM 141 MMOL/L (135-148)
[2017-01-22 05:15] LABS: BUN (BLOOD UREA NITROGEN) 9 MG/DL (6-23)
[2017-01-23 03:43] LABS: BASOPHILS 0 %; EOSINOPHILS 4.1 %; EOSINOPHILS ABSOLUTE 0.16 10/3/uL (0.0-0.53); HEMATOCRIT 34.2 % (36.0-48.0); HEMOGLOBIN 10.8 g/dL (12.0-16.0); IMMATURE GRANULOCYTES 0.3 %; IMMATURE GRANULOCYTES ABSOLUTE 0.01 10/3/uL (0.0-0.11); LYMPHOCYTES 25.4 %; LYMPHOCYTES ABSOLUTE 0.99 10/3/uL (0.67-4.30); MEAN CORPUS HGB CONC 31.6 g/dL (32.0-36.0); MEAN CORPUSCULAR HEMOGLOB 28.5 pg (26.0-34.0); MEAN CORPUSCULAR VOLUME 90.2 fL (80-100); MEAN PLATELET VOLUME 10.6 fL (9.2-13.0); MONOCYTES ABSOLUTE 0.31 10/3/uL (0.21-1.20); NEUTROPHILS 62.2 %; NEUTROPHILS ABSOLUTE 2.42 10/3/uL (2.02-8.40); PLATELET COUNT 87 10/3/uL (150-400); RBC DISTRIBUTION WIDTH 15.4 % (12.0-16.0); RED CELL COUNT 3.79 10/6/uL (4.0-5.6); WHITE BLOOD CELLS 3.9 10/3/uL (4.5-10.5)
[2017-01-23 03:46] LABS: MANUAL DIFF NO %
[2017-01-23 03:49] LABS: INTERNATIONAL NORMAL RATI 1.2 UNITS (-); PROTIME (NOT ORD) 14.9 SEC (12.0-14.5)
[2017-01-23 03:54] LABS: BUN (BLOOD UREA NITROGEN) 7 MG/DL (6-23); CALCIUM, SERUM 8.5 MG/DL (8.5-10.4); CHLORIDE, SERUM 109 MMOL/L (96-112); CO2 (CARBON DIOXIDE) 30 MMOL/L (24-34); CREATININE 0.61 MG/DL (0.55-1.02); GFR AFRICAN AMERICAN 128 ML/MIN (>=60); GFR NON AFRICAN AMERICAN 110 ML/MIN (>=60); GLUCOSE, SERUM 129 MG/DL (60-99); SODIUM, SERUM 145 MMOL/L (135-148)
[2017-01-24 06:01] LABS: INTERNATIONAL NORMAL RATI 1.2 UNITS (-); PROTIME (NOT ORD) 15.5 SEC (12.0-14.5)
[2017-01-24 06:04] LABS: PARTIAL THROMBO TIME 128.7 SEC (22.5-37.2)
[2017-01-25 06:47] LABS: BASOPHILS 0.2 %; BASOPHILS ABSOLUTE 0.01 10/3/uL (0.0-0.16); EOSINOPHILS 2.5 %; EOSINOPHILS ABSOLUTE 0.11 10/3/uL (0.0-0.53); HEMATOCRIT 34.3 % (36.0-48.0); IMMATURE GRANULOCYTES 0.5 %; IMMATURE GRANULOCYTES ABSOLUTE 0.02 10/3/uL (0.0-0.11); LYMPHOCYTES 21.8 %; LYMPHOCYTES ABSOLUTE 0.96 10/3/uL (0.67-4.30); MEAN CORPUS HGB CONC 32.1 g/dL (32.0-36.0); MEAN CORPUSCULAR HEMOGLOB 28.9 pg (26.0-34.0); MEAN CORPUSCULAR VOLUME 90.3 fL (80-100); MEAN PLATELET VOLUME 10.9 fL (9.2-13.0); MONOCYTES 8.8 %; MONOCYTES ABSOLUTE 0.39 10/3/uL (0.21-1.20); NEUTROPHILS 66.2 %; NEUTROPHILS ABSOLUTE 2.92 10/3/uL (2.02-8.40); PLATELET COUNT 92 10/3/uL (150-400); RBC DISTRIBUTION WIDTH 15.5 % (12.0-16.0); WHITE BLOOD CELLS 4.4 10/3/uL (4.5-10.5)
[2017-01-25 06:49] LABS: MANUAL DIFF NO %
[2017-01-25 07:00] LABS: BUN (BLOOD UREA NITROGEN) 4 MG/DL (6-23); CHLORIDE, SERUM 103 MMOL/L (96-112); CO2 (CARBON DIOXIDE) 29 MMOL/L (24-34); CREATININE 0.69 MG/DL (0.55-1.02); GFR AFRICAN AMERICAN 123 ML/MIN (>=60); GFR NON AFRICAN AMERICAN 106 ML/MIN (>=60); GLUCOSE, SERUM 122 MG/DL (60-99); POTASSIUM, SERUM 4.1 MMOL/L (3.5-5.3); SODIUM, SERUM 139 MMOL/L (135-148)
[2017-01-25 07:07] LABS: INTERNATIONAL NORMAL RATI 1.5 UNITS (-); PROTIME (NOT ORD) 17.8 SEC (12.0-14.5)
[2017-01-26 08:53] LABS: INTERNATIONAL NORMAL RATI 1.7 UNITS (-); PROTIME (NOT ORD) 19.8 SEC (12.0-14.5)
[2017-01-26 08:54] LABS: PARTIAL THROMBO TIME 76.8 SEC (22.5-37.2)
[2017-01-27 07:22] LABS: INTERNATIONAL NORMAL RATI 1.9 UNITS (-); PROTIME (NOT ORD) 21.2 SEC (12.0-14.5)
[2017-01-27 07:23] LABS: PARTIAL THROMBO TIME 96.4 SEC (22.5-37.2)
[2017-01-27] MEDS ORDERED: ATV1 PO (09:29)
[2017-01-27] MEDS ORDERED: PLAVIX PO (09:29)
[2017-05-19] MEDS ORDERED: MSIMMR15 PO (18:06)
[2017-05-19] MEDS ORDERED: ATV1 PO (18:06)
[2017-05-19] MEDS ORDERED: MSCONTIN PO (18:06)
[2017-05-19] MEDS ORDERED: PR25 PO (18:07)
[2017-05-19] MEDS ORDERED: KLOR-CON M2020 MEQ PO (18:07)
[2017-05-19] MEDS ORDERED: C5 PO (18:08)
[2017-05-19] MEDS ORDERED: COUMADIN7.5 MG PO (18:08)
[2017-05-19] MEDS ORDERED: SUCR PO (18:09)
[2017-05-19] MEDS ORDERED: ZOFRAN4 PO (18:09)
[2017-05-19] MEDS ORDERED: SEROQUEL200 MG PO (18:09)
[2017-05-19] MEDS ORDERED: DSS PO (18:09)
[2017-05-19] MEDS ORDERED: PRILOSEC40 MG PO (18:09)
[2017-05-19] MEDS ORDERED: ZBETA10 PO (18:10)
[2017-05-19] MEDS ORDERED: PRAVAC PO (18:10)
[2017-05-19] MEDS ORDERED: PLAVIX PO (18:11)
[2017-05-19] MEDS ORDERED: MAGOX4 PO (18:11)
[2017-05-19] MEDS ORDERED: MULTIVIT/MIN PO (18:11)
[2017-05-19] MEDS ORDERED: HALF81 PO (18:11)
[2017-05-19] MEDS ORDERED: EFFEXOR XR150 MG PO (18:11)
[2017-05-19] MEDS ORDERED: ACETAZOLAMIDE 125 MG PO (18:11)
[2017-05-19] MEDS ORDERED: UPTRAVI PO (18:12)
[2017-05-19] MEDS ORDERED: BUM5 PO (18:12)
[2017-05-19] MEDS ORDERED: SPIRO50 PO (18:13)
[2017-05-19] MEDS ORDERED: PROVHFA INH (18:13)
[2017-05-24] MEDS ORDERED: MIRALAX POWDER1 PKT PO (13:03)
[2017-05-24] MEDS ORDERED: MOVANTIK25 MG PO (13:03)
[2017-05-24] MEDS ORDERED: ALTA2.5 PO (13:05)
== END 2017-01-27 11:03 | disposition home health service (06) | DRG 247 ==
LOC: ER 19:04 → ER/OF 01-10 10:33 → 7NO 01-10 11:02 → SSU1 01-21 09:27 → 5NO 01-22 15:15
PROVIDERS: Emergency Medicine; Hospitalist; Internal Medicine; Internal Medicine Cardiovascular Disease; Nurse Practitioner Acute Care
PROC: 4A033BC Measurement of Arterial Pressure, Coronary, Percutaneous Approach (ICD-10-PCS; principal; 2017-01-21)
PROC: B2111ZZ Fluoroscopy of Multiple Coronary Arteries using Low Osmolar Contrast (ICD-10-PCS; principal; 2017-01-21)
PROC: B2151ZZ Fluoroscopy of Left Heart using Low Osmolar Contrast (ICD-10-PCS; principal; 2017-01-21)
PROC: 027034Z Dilation of Coronary Artery, One Artery with Drug-eluting Intraluminal Device, Percutaneous Approach (ICD-10-PCS; principal; 2017-01-21)
PROC: 4A023N7 Measurement of Cardiac Sampling and Pressure, Left Heart, Percutaneous Approach (ICD-10-PCS; principal; 2017-01-21)
DX: I25.110 Atherosclerotic heart disease of native coronary artery with unstable angina pectoris (principal); R45.851 Suicidal ideations; I27.2 Other secondary pulmonary hypertension; J20.9 Acute bronchitis, unspecified; I27.81 Cor pulmonale (chronic); F41.9 Anxiety disorder, unspecified; F31.9 Bipolar disorder, unspecified; G89.4 Chronic pain syndrome; Z79.891 Long term (current) use of opiate analgesic; Z95.5 Presence of coronary angioplasty implant and graft; Z91.040 Latex allergy status; Z88.8 Allergy status to other drugs, medicaments and biological substances; Z79.01 Long term (current) use of anticoagulants; Z87.891 Personal history of nicotine dependence; Z86.711 Personal history of pulmonary embolism
CPT/HCPCS: 71010; 78452; 80048; 80061; 80305; 80307; 81001; 82550; 82553; 82962; 83036; 83605; 83735; 84145; 84484; 84703; 85025; 85347; 85610; 85730; 93005; 93017; 93458; 93571; 93572; 94640; 96372; 96374; 97161-GP; 97165-GO; 99152; 99153; 99285; A9270-GY; A9502; C1725; C1769; C1874; C1887; C1894; C9600; G8978-CH-GP; G8979-CH-GP; G8980-CH-GP; G8987-CH-GO; G8988-CH-GO; G8989-CH-GO; J0153; J2250; J2405; J2930; J3010; J3410; Q9967

== ENCOUNTER 2017-03-19 16:25 | Emergency (ER) | payer MEDICARE ==
[~2017-03-19 16:25] MED LIST changes: +IPRA17AE INH; +MSCONTIN PO
[2017-03-19 16:51] LABS: BASOPHILS 0.4 %; BASOPHILS ABSOLUTE 0.04 10/3/uL (0.0-0.16); EOSINOPHILS 1.6 %; EOSINOPHILS ABSOLUTE 0.15 10/3/uL (0.0-0.53); IMMATURE GRANULOCYTES 0.2 %; IMMATURE GRANULOCYTES ABSOLUTE 0.02 10/3/uL (0.0-0.11); LYMPHOCYTES 27.9 %; LYMPHOCYTES ABSOLUTE 2.66 10/3/uL (0.67-4.30); MEAN CORPUSCULAR HEMOGLOB 28.4 pg (26.0-34.0); MEAN PLATELET VOLUME 11.6 fL (9.2-13.0); MONOCYTES 4.3 %; MONOCYTES ABSOLUTE 0.41 10/3/uL (0.21-1.20); NEUTROPHILS 65.6 %; NEUTROPHILS ABSOLUTE 6.27 10/3/uL (2.02-8.40); RBC DISTRIBUTION WIDTH 13.5 % (12.0-16.0)
[2017-03-19 16:52] LABS: ER CBC TAT 0 Hrs 11 Mins; HEMATOCRIT 46.6 % (36.0-48.0); HEMOGLOBIN 16.3 g/dL (12.0-16.0); MANUAL DIFF NO %; MEAN CORPUSCULAR VOLUME 81.3 fL (80-100); PLATELET COUNT 235 10/3/uL (150-400); RED CELL COUNT 5.73 10/6/uL (4.0-5.6); WHITE BLOOD CELLS 9.6 10/3/uL (4.5-10.5)
[2017-03-19 17:00] LABS: INTERNATIONAL NORMAL RATI 1.4 UNITS (-); PARTIAL THROMBO TIME 31.4 SEC (22.5-37.2)
[2017-03-19 17:02] LABS: PROTIME (NOT ORD) 17.1 SEC (12.0-14.5)
[2017-03-19 17:13] LABS: CALCIUM, SERUM 9.9 MG/DL (8.5-10.4); CHLORIDE, SERUM 111 MMOL/L (96-112); CO2 (CARBON DIOXIDE) 26 MMOL/L (24-34); CREATININE 0.95 MG/DL (0.55-1.02); GFR AFRICAN AMERICAN 84 ML/MIN (>=60); GFR NON AFRICAN AMERICAN 73 ML/MIN (>=60); GLUCOSE, SERUM 123 MG/DL (60-99); SODIUM, SERUM 140 MMOL/L (135-148); TROPONIN I <0.02 NG/ML (<0.05)
[2017-03-19 17:14] LABS: BUN (BLOOD UREA NITROGEN) 9 MG/DL (6-23); CHEST PAIN PROFILE TAT 0 Hrs 32 Mins
[2017-05-19] MEDS ORDERED: MSIMMR15 PO (18:06)
[2017-05-19] MEDS ORDERED: ATV1 PO (18:06)
[2017-05-19] MEDS ORDERED: MSCONTIN PO (18:06)
[2017-05-19] MEDS ORDERED: PR25 PO (18:07)
[2017-05-19] MEDS ORDERED: KLOR-CON M2020 MEQ PO (18:07)
[2017-05-19] MEDS ORDERED: C5 PO (18:08)
[2017-05-19] MEDS ORDERED: COUMADIN7.5 MG PO (18:08)
[2017-05-19] MEDS ORDERED: SEROQUEL200 MG PO (18:09)
[2017-05-19] MEDS ORDERED: PRILOSEC40 MG PO (18:09)
[2017-05-19] MEDS ORDERED: DSS PO (18:09)
[2017-05-19] MEDS ORDERED: ZOFRAN4 PO (18:09)
[2017-05-19] MEDS ORDERED: SUCR PO (18:09)
[2017-05-19] MEDS ORDERED: PRAVAC PO (18:10)
[2017-05-19] MEDS ORDERED: ZBETA10 PO (18:10)
[2017-05-19] MEDS ORDERED: EFFEXOR XR150 MG PO (18:11)
[2017-05-19] MEDS ORDERED: HALF81 PO (18:11)
[2017-05-19] MEDS ORDERED: PLAVIX PO (18:11)
[2017-05-19] MEDS ORDERED: MAGOX4 PO (18:11)
[2017-05-19] MEDS ORDERED: MULTIVIT/MIN PO (18:11)
[2017-05-19] MEDS ORDERED: ACETAZOLAMIDE 125 MG PO (18:11)
[2017-05-19] MEDS ORDERED: UPTRAVI PO (18:12)
[2017-05-19] MEDS ORDERED: BUM5 PO (18:12)
[2017-05-19] MEDS ORDERED: PROVHFA INH (18:13)
[2017-05-19] MEDS ORDERED: SPIRO50 PO (18:13)
[2017-05-24] MEDS ORDERED: MIRALAX POWDER1 PKT PO (13:03)
[2017-05-24] MEDS ORDERED: MOVANTIK25 MG PO (13:03)
[2017-05-24] MEDS ORDERED: ALTA2.5 PO (13:05)
== END 2017-03-20 00:40 | disposition home or self-care (01) ==
LOC: ER 16:25
PROVIDERS: Emergency Medicine
DX: R07.89 Other chest pain (principal); I25.10 Atherosclerotic heart disease of native coronary artery without angina pectoris; I11.0 Hypertensive heart disease with heart failure; I50.9 Heart failure, unspecified; F31.9 Bipolar disorder, unspecified; K74.60 Unspecified cirrhosis of liver; Z95.1 Presence of aortocoronary bypass graft; Z90.49 Acquired absence of other specified parts of digestive tract; Z90.710 Acquired absence of both cervix and uterus; Z91.040 Latex allergy status; Z88.5 Allergy status to narcotic agent; Z79.82 Long term (current) use of aspirin
CPT/HCPCS: 71020; 71275; 80048; 83735; 84484; 85025; 85610; 85730; 93005; 96372; 96374; 99285; J1170; J2405; Q9967

== ENCOUNTER 2017-04-24 23:00 | Emergency (ER) | payer MEDICARE ==
[2017-04-24 18:56] LABS: BASOPHILS 0.9 %; BASOPHILS ABSOLUTE 0.08 10/3/uL (0.0-0.16); EOSINOPHILS 3.3 %; ER CBC TAT 0 Hrs 05 Mins; HEMATOCRIT 45.7 % (36.0-48.0); HEMOGLOBIN 15.8 g/dL (12.0-16.0); IMMATURE GRANULOCYTES 0.2 %; IMMATURE GRANULOCYTES ABSOLUTE 0.02 10/3/uL (0.0-0.11); LYMPHOCYTES 39.6 %; LYMPHOCYTES ABSOLUTE 3.61 10/3/uL (0.67-4.30); MANUAL DIFF NO %; MEAN CORPUS HGB CONC 34.6 g/dL (32.0-36.0); MEAN CORPUSCULAR HEMOGLOB 28.4 pg (26.0-34.0); MEAN PLATELET VOLUME 11.4 fL (9.2-13.0); MONOCYTES 6.4 %; MONOCYTES ABSOLUTE 0.58 10/3/uL (0.21-1.20); NEUTROPHILS 49.6 %; NEUTROPHILS ABSOLUTE 4.53 10/3/uL (2.02-8.40); PLATELET COUNT 204 10/3/uL (150-400); RED CELL COUNT 5.57 10/6/uL (4.0-5.6); WHITE BLOOD CELLS 9.1 10/3/uL (4.5-10.5)
[2017-04-24 19:08] LABS: INTERNATIONAL NORMAL RATI 1.1 UNITS (-); PARTIAL THROMBO TIME 28.2 SEC (22.5-37.2)
[2017-04-24 19:09] LABS: PROTIME (NOT ORD) 14.1 SEC (12.0-14.5)
[2017-04-24 19:12] LABS: BUN (BLOOD UREA NITROGEN) 12 MG/DL (6-23); CHEST PAIN PROFILE TAT 0 Hrs 21 Mins; CHLORIDE, SERUM 105 MMOL/L (96-112); CO2 (CARBON DIOXIDE) 28 MMOL/L (24-34); CREATININE 0.83 MG/DL (0.55-1.02); GFR AFRICAN AMERICAN 99 ML/MIN (>=60); GFR NON AFRICAN AMERICAN 86 ML/MIN (>=60); GLUCOSE, SERUM 155 MG/DL (60-99); POTASSIUM, SERUM 4.2 MMOL/L (3.5-5.3); SODIUM, SERUM 139 MMOL/L (135-148); TROPONIN I <0.02 NG/ML (<0.05)
[2017-05-19] MEDS ORDERED: ATV1 PO (18:06)
[2017-05-19] MEDS ORDERED: MSIMMR15 PO (18:06)
[2017-05-19] MEDS ORDERED: MSCONTIN PO (18:06)
[2017-05-19] MEDS ORDERED: KLOR-CON M2020 MEQ PO (18:07)
[2017-05-19] MEDS ORDERED: PR25 PO (18:07)
[2017-05-19] MEDS ORDERED: C5 PO (18:08)
[2017-05-19] MEDS ORDERED: COUMADIN7.5 MG PO (18:08)
[2017-05-19] MEDS ORDERED: ZOFRAN4 PO (18:09)
[2017-05-19] MEDS ORDERED: DSS PO (18:09)
[2017-05-19] MEDS ORDERED: SUCR PO (18:09)
[2017-05-19] MEDS ORDERED: SEROQUEL200 MG PO (18:09)
[2017-05-19] MEDS ORDERED: PRILOSEC40 MG PO (18:09)
[2017-05-19] MEDS ORDERED: ZBETA10 PO (18:10)
[2017-05-19] MEDS ORDERED: PRAVAC PO (18:10)
[2017-05-19] MEDS ORDERED: MULTIVIT/MIN PO (18:11)
[2017-05-19] MEDS ORDERED: PLAVIX PO (18:11)
[2017-05-19] MEDS ORDERED: ACETAZOLAMIDE 125 MG PO (18:11)
[2017-05-19] MEDS ORDERED: HALF81 PO (18:11)
[2017-05-19] MEDS ORDERED: EFFEXOR XR150 MG PO (18:11)
[2017-05-19] MEDS ORDERED: MAGOX4 PO (18:11)
[2017-05-19] MEDS ORDERED: BUM5 PO (18:12)
[2017-05-19] MEDS ORDERED: UPTRAVI PO (18:12)
[2017-05-19] MEDS ORDERED: PROVHFA INH (18:13)
[2017-05-19] MEDS ORDERED: SPIRO50 PO (18:13)
[2017-05-24] MEDS ORDERED: MOVANTIK25 MG PO (13:03)
[2017-05-24] MEDS ORDERED: MIRALAX POWDER1 PKT PO (13:03)
[2017-05-24] MEDS ORDERED: ALTA2.5 PO (13:05)
== END 2017-04-25 01:24 | disposition home or self-care (01) ==
LOC: ER 23:00
PROVIDERS: Emergency Medicine
DX: R07.89 Other chest pain (principal); I25.10 Atherosclerotic heart disease of native coronary artery without angina pectoris; F41.9 Anxiety disorder, unspecified; Z95.5 Presence of coronary angioplasty implant and graft; Z91.040 Latex allergy status; Z88.8 Allergy status to other drugs, medicaments and biological substances; Z87.891 Personal history of nicotine dependence; Z79.82 Long term (current) use of aspirin; Z79.01 Long term (current) use of anticoagulants
CPT/HCPCS: 71020; 80048; 83735; 84484; 85025; 85610; 85730; 93005; 96374; 96375; 99285; J1170; J2405

== ENCOUNTER 2017-07-18 04:42 | Emergency (ER) | payer MEDICARE ==
[~2017-07-18 04:42] MED LIST changes: +ACETAZOLAMIDE 125 MG PO; +BUM5 PO; +MOVANTIK25 MG PO
[2017-07-18 05:36] LABS: BASOPHILS 0.6 %; BASOPHILS ABSOLUTE 0.05 10/3/uL (0.0-0.16); EOSINOPHILS 1.3 %; EOSINOPHILS ABSOLUTE 0.11 10/3/uL (0.0-0.53); HEMOGLOBIN 14.2 g/dL (12.0-16.0); IMMATURE GRANULOCYTES 0.2 %; IMMATURE GRANULOCYTES ABSOLUTE 0.02 10/3/uL (0.0-0.11); LYMPHOCYTES 24.9 %; LYMPHOCYTES ABSOLUTE 2.15 10/3/uL (0.67-4.30); MEAN CORPUS HGB CONC 33.8 g/dL (32.0-36.0); MEAN CORPUSCULAR VOLUME 82.7 fL (80-100); MEAN PLATELET VOLUME 12.2 fL (9.2-13.0); MONOCYTES 6.5 %; MONOCYTES ABSOLUTE 0.56 10/3/uL (0.21-1.20); NEUTROPHILS 66.5 %; NEUTROPHILS ABSOLUTE 5.75 10/3/uL (2.02-8.40); PLATELET COUNT 162 10/3/uL (150-400); RBC DISTRIBUTION WIDTH 13.7 % (12.0-16.0); RED CELL COUNT 5.08 10/6/uL (4.0-5.6); WHITE BLOOD CELLS 8.6 10/3/uL (4.5-10.5)
[2017-07-18 05:40] LABS: MANUAL DIFF NO %
[2017-07-18 05:44] LABS: INTERNATIONAL NORMAL RATI 1.1 UNITS (-); PARTIAL THROMBO TIME 27.8 SEC (22.5-37.2); PROTIME (NOT ORD) 13.7 SEC (12.0-14.5)
[2017-07-18 06:04] LABS: ASCORBIC ACID (UR NOT ORDER) NEG (NEG); BILIRUBIN, URINE NEGATIVE (NEG); ER URINALYSIS TAT 0 Hrs 00 Mins; KETONE, URINE NEGATIVE (NEG); LEUKOCYTE ESTERASE(NOT OR NEG (NEG); NITRITE (URINE) NEG (NEG); WBC (NOT ORDERED) (RFLEX) < 1 (0-5)
[2017-07-18 06:11] LABS: LACTATE 1.2 MMOL/L (0.3-2.4)
[2017-07-18 06:16] LABS: AMPHETAMINES (NOT ORD) NEG (NEG); BARBITURATES (NOT ORDERED NEG (NEG); BENZODIAZEPINES (NOT ORD) NEG (NEG); CANNABINOIDS (THC) NEG (NEG); COCAINE (NOT ORDERED) NEG (NEG); OPIATES POS (NEG); PHENCYCLIDINE(PCP) NEG (NEG); TRICYCLICS NEG (NEG)
[2017-07-18 06:25] LABS: ACETAMINOPHEN LEVEL (TYLENOL) < 2.0 MCG/ML (10.0-20.0); ALBUMIN 3.7 G/DL (3.5-5.0); ALCOHOL < 10 MG/DL (0); ALKALINE PHOSPHATASE 123 U/L (45-117); BUN (BLOOD UREA NITROGEN) 7 MG/DL (6-23); CALCIUM, SERUM 8.8 MG/DL (8.5-10.4); CHEST PAIN PROFILE TAT 0 Hrs 34 Mins; CHLORIDE, SERUM 112 MMOL/L (96-112); CO2 (CARBON DIOXIDE) 24 MMOL/L (24-34); CREATININE 0.58 MG/DL (0.55-1.02); DIRECT BILIRUBIN 0.2 MG/DL (0.0-0.4); GFR AFRICAN AMERICAN 130 ML/MIN (>=60); GFR NON AFRICAN AMERICAN 112 ML/MIN (>=60); GLUCOSE, SERUM 127 MG/DL (60-99); INDIRECT BILIRUBIN(NOT ORDER) 0.4 MG/DL (0.1-0.9); POTASSIUM, SERUM 3.5 MMOL/L (3.5-5.3); SALICYLATE < 1.7 MG/DL (-); SGOT(AST) 20 U/L (5-40); SGPT(ALT) 26 U/L (5-65); SODIUM, SERUM 143 MMOL/L (135-148); TOTAL BILIRUBIN 0.6 MG/DL (0-1.2); TOTAL PROTEIN 6.8 G/DL (6.0-8.5); TROPONIN I 0.02 NG/ML (<0.05)
[2017-07-18 07:21] LABS: PROCALCITONIN <0.05 ng/mL (<0.5)
== END 2017-07-18 08:09 | disposition home or self-care (01) ==
LOC: ER 04:42
PROVIDERS: Nurse Practitioner
DX: R51 Headache (principal); M54.2 Cervicalgia; G89.29 Other chronic pain; J06.9 Acute upper respiratory infection, unspecified; J44.9 Chronic obstructive pulmonary disease, unspecified; I50.9 Heart failure, unspecified; F41.9 Anxiety disorder, unspecified; F31.9 Bipolar disorder, unspecified; Z95.5 Presence of coronary angioplasty implant and graft; Z87.891 Personal history of nicotine dependence; I27.2 Other secondary pulmonary hypertension; Z86.711 Personal history of pulmonary embolism; Z87.442 Personal history of urinary calculi; Z88.6 Allergy status to analgesic agent; Z88.8 Allergy status to other drugs, medicaments and biological substances; Z91.09 Other allergy status, other than to drugs and biological substances; Z91.040 Latex allergy status; Z79.01 Long term (current) use of anticoagulants; Z79.82 Long term (current) use of aspirin; Z79.899 Other long term (current) drug therapy; W19.XXXA Unspecified fall, initial encounter
CPT/HCPCS: 70450; 71010; 72125; 80048; 80076; 80305; 80307; 81001; 83605; 83735; 83880; 84145; 84484; 85025; 85610; 85730; 87040; 93005; 94640; 99285